=== PATIENT | female | born 1980 | race African-American/Black ===

== ENCOUNTER 2016-04-13 10:59 | Emergency (ER) | payer OTHER ==
[~2016-04-13] VITALS: Ht 170.2 cm; Wt 131.5 kg
[~2016-04-13 10:59] MED LIST: FLEXERIL10 MG PO; MOTRIN800 MG PO; ZOFRAN 8MG8 MG PO
--- NOTE | 2016-04-13 11:47 | ED INFLUENZA/URI COMPLAINT ---
History of Present Illness General Chief Complaint: Upper Respiratory Sx/Fever Stated Complaint: "I DON'T FEEL WELL" BODY ACHES Source: patient Exam Limitations: no limitations Vital Signs & Intake/Output Vital Signs & Intake/Output Vital Signs Date Time Temp Pulse Resp B/P Pulse O2 O2 Flow FiO2 Ox Delivery Rate 04/13 1211 97.8 100 20 123/74 96 Room Air 04/13 1200 97.0 100 22 94 Room Air 04/13 1151 Room Air 04/13 1126 97.5 94 20 128/84 98 Room Air Room Air Allergies Coded Allergies: morphine (Intermediate, SWELLING, RASH 04/13/16) Reconcile Medications Ibuprofen 800 MG TABLET 1 TAB PO TID PAIN Oseltamivir Phosphate (Tamiflu) 75 MG CAPSULE 1 CAP PO BID INFLUENZA Triage Note: PT TO ED WITH C/O NASAL CONGESTION AND BODY ACHES SINCE YESTERDAY, "I HAD THE FLU SHOT". Triage Nurses Notes Reviewed? yes Onset: Abrupt Duration: day(s): (2) Timing: multiple episodes today Severity: severe No Modifying Factors: none Associated Symptoms: CONGESTION, MYALGIAS, WEAKNESS : No Patient currently breastfeeds: No HPI: This is a 35 old male presents via chief complaint of sudden onset of weakness, body aches, runny nose and congestion for the past 2 days. She has not been taking any ibuprofen or Tylenol at home. She states that she's been lying in bed and sleeping most of the time. This morning she felt a little bit worse. No abdominal pain nausea or vomiting. No diarrhea or rash. She states she feels a little chest tightness. The patient denies any sore throat, productive cough. Denies any sick contacts at home but she does have school age children. She states she got her flu shot in December. Past History Travel History Traveled to [place] past 21 day No Medical History Any Pertinent Medical History? see below for history Neurological: NONE EENT: NONE Cardiovascular: NONE Respiratory: NONE Gastrointestinal: NONE Hepatic: NONE Renal: NONE Musculoskeletal: NONE Psychiatric: NONE Endocrine: NONE Blood Disorders: NONE Cancer(s): NONE [employer]/Reproductive: NONE Surgical History Surgical History: non-contributory Psychosocial History What is your primary language Urdu Tobacco Use: Current Daily Use Daily Tobacco Use Amount/Type: => 5 Cigarettes daily ETOH Use: occasional use Illicit Drug Use: denies illicit drug use Family History Hx Contributory? No Review of Systems Review of Systems Constitutional: Reports: chills, fever (SUBJECTIVE). EENTM: Reports: no symptoms. Respiratory: Denies: cough, short of breath, sputum production. Cardiovascular: Reports: chest pain. Denies: palpitations, syncope. GI: Denies: abdominal pain, diarrhea, nausea, vomiting. Genitourinary: Reports: no symptoms. Musculoskeletal: Reports: no symptoms. Skin: Denies: rash. Neurological/Psychological: Reports: no symptoms. Hematologic/Endocrine: Denies: bruising, bleeding, polyuria, polydipsia. Immunologic/Allergic: Denies: splenectomy. All Other Systems: Reviewed and Negative Physical Exam Physical Exam General Appearance: well developed/nourished, alert, awake, mild distress, obese Head: atraumatic, normal appearance, active bleeding Eyes: Bilateral: normal appearance, PERRL, EOMI. Ears, Nose, Throat: normal ENT inspection, moist mucous membrane, hearing grossly normal, Tympanic normal, pharynx normal, nasal congestion Neck: normal inspection, supple, full range of motion Respiratory: normal breath sounds, chest non-tender, no respiratory distress Cardiovascular: regular rate/rhythm Peripheral Pulses: 2+ radial (R), 2+ radial (L) Gastrointestinal: normal bowel sounds, soft, non-tender Neurologic/Psych: no motor/sensory deficits, awake, alert, oriented x 3 Skin: intact, normal color, warm/dry Core Measures Severe Sepsis Present: No Septic Shock Present: No Progress Differential Diagnosis: sinusitis, uri, INFLUENZA, BRONCHITIS, PERICARDITIS Plan of Care: Orders Procedure Date/time Status EKG 04/13 1155 Active RAPID VIRAL INFLUENZA A 04/13 1151 Complete Initial ED EKG: NSR Departure Departure Time of Disposition: 1240 Disposition: HOME OR SELF CARE Condition: Stable Clinical Impression Primary Impression: Influenza Referrals: GABBY KULKARNI APRN (PCP/Family) Additional Instructions: TAKE THE TAMIFLU AND IBUPROFEN DIRECTED. GET PLENTY OF REST AND DRINK PLENTY OF FLUIDS. FOLLOW UP WITH YOUR DOCTOR NEEDED. RETURN TO THE ER NEEDED. Departure Forms: Customer Survey General Discharge Information Prescriptions: Current Visit Scripts Ibuprofen 1 TAB PO TID #30 TAB Oseltamivir Phosphate (Tamiflu) 1 CAP PO BID #10 CAP
[2016-04-13 12:11] VITALS: BP 123/74
[2016-04-13] MEDS ORDERED: IBUPROFEN800 M1 PO (12:41)
[2016-04-13] MEDS ORDERED: TAMIFLU75 M1 PO (12:41)
== END 2016-04-13 12:46 ==
LOC: ERH 10:59
DX: J11.1 Influenza due to unidentified influenza virus with other respiratory manifestations (principal)
CPT/HCPCS: 87804; 87804-59; 93005; 93010; J1885

== ENCOUNTER 2016-06-22 22:14 | Emergency (ER) | payer OTHER ==
[~2016-06-22] VITALS: Ht 170.2 cm; Wt 138.8 kg
[~2016-06-22 22:14] MED LIST changes: +IBUPROFEN800 M1 PO; +TAMIFLU75 M1 PO
--- NOTE | 2016-06-22 22:59 | ED GI/GU/ABDOMINAL COMPLAINT ---
History of Present Illness General Chief Complaint: Abdominal Pain/Flank Pain Stated Complaint: ABD PAIN, VAGINAL BLEEDING, +PREG TEST 1 MONTH AGO Source: patient Exam Limitations: no limitations Vital Signs & Intake/Output Vital Signs & Intake/Output Vital Signs Date Time Temp Pulse Resp B/P Pulse O2 O2 Flow FiO2 Ox Delivery Rate 06/23 0307 65 18 133/76 98 Room Air 06/23 0103 96.5 66 20 113/65 97 Room Air 06/22 2234 97.2 66 18 137/95 99 Room Air ED Intake and Output 06/23 0000 06/22 1200 Intake Total Output Total Balance Patient 306 lb Weight Allergies Coded Allergies: morphine (Intermediate, SWELLING, RASH 04/13/16) Reconcile Medications Ibuprofen 800 MG TABLET 1 TAB PO TID PAIN Oseltamivir Phosphate (Tamiflu) 75 MG CAPSULE 1 CAP PO BID INFLUENZA Triage Note: PT TO TRIAGE WITH C/O LOWER ABD PAIN 10/10 AND VAGINAL BLEEDING SINCE 6PM. + TEST A MONTH AGO. PT DID'S SEE HER OBGYN YET. . VSS. Triage Nurses Notes Reviewed? yes ? n Is pt currently ? No Onset: Abrupt Duration: hour(s):, constant, continues in ED Timing: recent history Location: lower abd Radiation: no radiation Prior Abdominal Problems: none No Modifying Factors: none HPI: 35-year-old female comes into emergency room for further evaluation of lower abdominal pain has been going on for the past few hours. Pain is sharp. Cramping. Continuous. Pain is nonradiating. Denies any fever chills. Denies any vomiting. Patient reports that she had a positive test 1 month ago. Patient has not seen her [employer] doctor and has not had any ultrasound at this time. Nothing seems to make the symptoms better or worse. (NORA FINE) Past History Travel History Traveled to [place] past 21 day No Medical History Any Pertinent Medical History? 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 No (NORA FINE) Review of Systems Review of Systems Constitutional: Reports: no symptoms. EENTM: Reports: no symptoms. Respiratory: Reports: no symptoms. Cardiovascular: Reports: no symptoms. GI: Reports: see HPI. Genitourinary: Reports: no symptoms. Musculoskeletal: Reports: no symptoms. Skin: Reports: no symptoms. Neurological/Psychological: Reports: no symptoms. Hematologic/Endocrine: Reports: see HPI. Immunologic/Allergic: Reports: no symptoms. All Other Systems: Reviewed and Negative (NORA FINE) Physical Exam Physical Exam General Appearance: well developed/nourished, alert, mild distress, obese Head: atraumatic, normal appearance Eyes: Bilateral: normal appearance. Ears, Nose, Throat, Mouth: hearing grossly normal, moist mucous membrane Neck: normal inspection, full range of motion Respiratory: normal breath sounds, no respiratory distress Cardiovascular: regular rate/rhythm Gastrointestinal: soft, tenderness Back: normal inspection Extremities: normal range of motion Neurologic/Psych: awake, alert, oriented x 3, normal gait, normal mood/affect Skin: intact, normal color Core Measures ACS in differential dx? No Severe Sepsis Present: No Septic Shock Present: No (NORA FINE) Progress Differential Diagnosis: diverticulitis, ectopic , endometritis, esophageal varices, ovarian cyst, ovarian torsion, PID/cervicitis, SBO, UTI/ pyelo Plan of Care: Orders Procedure Date/time Status Add-on Test (ER Only) 06/23 0233 Active CULTURE,URINE 06/22 2308 Active URINE 06/22 2299 Complete URINALYSIS 06/23 2255 Complete HUMAN BETA HCG TITRE 06/23 2251 Complete COMPREHENSIVE METABOLIC PANEL 06/23 2251 Complete CBC WITHOUT DIFFERENTIAL 06/23 2251 Complete RHOGAM WORK-UP 06/23 2251 Complete Laboratory Tests 06/22/162308: Urine Test NEGATIVE 06/22/162308: Urinalysis MOD H, Urine Color YEL, Urine Clarity CLEAR, Urine pH 6.0, Ur Specific [place] 1.025, Urine Protein NEG, Urine Ketones NEG, Urine Nitrite NEG, Urine Bilirubin NEG, Urine Urobilinogen 1.0, Ur Leukocyte Esterase TRACE H, Ur Microscopic SEDIMENT EXAMINED, Urine RBC 15-25 H, Urine WBC 10-15 H, Ur Epithelial Cells MOD H, Urine Bacteria MOD H, Urine Mucus FEW, Urine Hemoglobin LARGE H, Urine Glucose NEG 06/22/16 2300: Anion Gap 9, Estimated GFR > 60, BUN/Creatinine Ratio 12.9, Glucose 93, Calcium 9.4, Total Bilirubin 0.4, AST 18, ALT 31, Alkaline Phosphatase 92, Total Protein 6.9, Albumin 3.9, Globulin 3.0, Albumin/Globulin Ratio 1.3, Beta HCG, Quant < 2.4, CBC w Diff NO MAN DIFF REQ, RBC 4.37, MCV 88.1, MCH 29.6, RDW 13.0, MPV 7.0 L, Gran % 65.4, Lymphocytes % 27.0, Monocytes % 5.4, Eosinophils % 1.8, Basophils % 0.4, Absolute Granulocytes 8.3 H, Absolute Lymphocytes 3.4, Absolute Monocytes 0.7 H, Absolute Eosinophils 0.2, Absolute Basophils 0.1, PUBS MCHC 33.6 Microbiology 06/22 2308 URINE ROUT: Urine Culture - RECD Diagnostic Imaging: Viewed by Me: CT Scan. Discussed w/RAD: CT Scan. Initial ED EKG: none Hand-Off Endorsed To: DIPTI SILVA DO Endorsed Time: 57 Pending: CT (NORA FINE) Departure Departure Disposition: STILL A PATIENT Condition: Stable Clinical Impression Primary Impression: Abdominal pain Referrals: GABBY KULKARNI APRN (PCP/Family) Departure Forms: Customer Survey General Discharge Information (NORA FINE) Departure Comments The patient was signed out to me by Nora Silveira. CT scan of the abdomen and pelvis shown below: PATIENT: POLA BACON PRESENT AGE: 35 PATIENT ACCOUNT NO: [id number] : 81 LOCATION: [facility] ORDERING PHYSICIAN: NORA AVILA SERVICE DATE: 06/23/16 EXAM TYPE: CAT - CT ABD & PELVIS W/O IV CONTRAS EXAMINATION: CT ABDOMEN AND PELVIS WITHOUT CONTRAST CLINICAL INFORMATION: Lower abdominal pain. Elevated white count. COMPARISON: CT scan abdomen pelvis 09/05/2013 TECHNIQUE: Multidetector volumetric imaging was performed from the superior aspect of the liver through the pubic symphysis. Sagittal and coronal reformatted images were obtained on the technologist's workstation. DLP: 1472.85mGy-cm FINDINGS: LUNG BASES: The visualized lung bases are unremarkable. LIVER, GALLBLADDER, AND BILIARY TREE: The liver is normal in size, shape, and attenuation. No focal hepatic lesion or biliary ductal dilatation is present. Right lobe liver measures 20 cm superior inferior. Small calcified gallstones in the gallbladder. No edema around the gallbladder. No bile duct dilatation. PANCREAS: Unremarkable. SPLEEN: 4 cm splenic cyst at the anterior splenic margin. Small calcified granuloma within the spleen. ADRENAL GLANDS: Unremarkable. KIDNEYS AND URETERS: The kidneys are normal in size, shape, and attenuation. No hydronephrosis, hydroureter, or calculi seen. No perinephric stranding. BLADDER: Unremarkable. GASTROINTESTINAL TRACT: The small and large bowel are unremarkable. The appendix is unremarkable. ABDOMINAL WALL: Small fat-containing umbilical hernia. LYMPH NODES: Normal. VASCULAR: Unremarkable. PELVIC VISCERA: Uterus is anteverted. No adnexal abnormality. OSSEOUS STRUCTURES: Vacuum disc phenomenon L5-S1 with endplate spur of the vertebrae. No spondylolysis or spondylolisthesis. IMPRESSION: No acute abnormality CT scan abdomen and pelvis. DICTATED BY: EAMON FREY MD DATE/TIME DICTATED:06/23/16214 ANIMAL DAYCARE PROVIDER:KALIE DATE/TIME TRANSCRIBED:06/23/16214 CONFIDENTIAL, DO NOT COPY WITHOUT APPROPRIATE AUTHORIZATION. <Electronically signed in Other Vendor System> SIGNED BY: EAMON FREY MD 06/23/16 0223 The patient's abdominal pain significantly improved. She does have hematuria and pyuria. Urine culture was sent, she denies any urinary symptoms. She will follow-up with her doctor on Friday. (DIPTI SILVA DO
[2016-06-22 23:08] LABS: ABSOLUTE BASOPHIL COUNT 0.1 /CUMM (0.0-0.2); ABSOLUTE EOSINOPHIL COUNT 0.2 /CUMM (0.0-0.7); ABSOLUTE GRANULOCYTE CT 8.3 /CUMM (1.4-6.5); ABSOLUTE LYMPH COUNT 3.4 /CUMM (1.2-3.4); ABSOLUTE MONOCYTE COUNT 0.7 /CUMM (0.10-0.60); BASOPHIL % 0.4 % (0.0-2.0); EOSINOPHIL % 1.8 % (0-5); GRANULOCYTE % 65.4 % (42.2-75.2); HEMATOCRIT 38.5 % (37-47); MEAN CORPUSCULAR HGB 29.6 PG (27.0-31.0); MEAN CORPUSCULAR HGB CONC 33.6 G/DL (33.0-37.0); MEAN CORPUSCULAR VOLUME 88.1 FL (81.0-99.0); PLATELET COUNT 338 /CUMM (130-400); RED BLOOD CELL CT 4.37 /CUMM (4.20-5.40); WHITE BLOOD CELL COUNT 12.8 /CUMM (4.8-10.8)
--- NOTE | 2016-06-23 02:23 | CT SCAN REPORT ---
EXAMINATION: CT ABDOMEN AND PELVIS WITHOUT CONTRAST CLINICAL INFORMATION: Lower abdominal pain. Elevated white count. COMPARISON: CT scan abdomen pelvis 09/05/2013 TECHNIQUE: Multidetector volumetric imaging was performed from the superior aspect of the liver through the pubic symphysis. Sagittal and coronal reformatted images were obtained on the technologist's workstation. DLP: 1472.85mGy-cm FINDINGS: LUNG BASES: The visualized lung bases are unremarkable. LIVER, GALLBLADDER, AND BILIARY TREE: The liver is normal in size, shape, and attenuation. No focal hepatic lesion or biliary ductal dilatation is present. Right lobe liver measures 20 cm superior inferior. Small calcified gallstones in the gallbladder. No edema around the gallbladder. No bile duct dilatation. PANCREAS: Unremarkable. SPLEEN: 4 cm splenic cyst at the anterior splenic margin. Small calcified granuloma within the spleen. ADRENAL GLANDS: Unremarkable. KIDNEYS AND URETERS: The kidneys are normal in size, shape, and attenuation. No hydronephrosis, hydroureter, or calculi seen. No perinephric stranding. BLADDER: Unremarkable. GASTROINTESTINAL TRACT: The small and large bowel are unremarkable. The appendix is unremarkable. ABDOMINAL WALL: Small fat-containing umbilical hernia. LYMPH NODES: Normal. VASCULAR: Unremarkable. PELVIC VISCERA: Uterus is anteverted. No adnexal abnormality. OSSEOUS STRUCTURES: Vacuum disc phenomenon L5-S1 with endplate spur of the vertebrae. No spondylolysis or spondylolisthesis. IMPRESSION: No acute abnormality CT scan abdomen and pelvis.
[2016-06-23 03:07] VITALS: BP 133/76
== END 2016-06-23 03:10 ==
LOC: ERH 22:14
PROVIDERS: Physician Assistant Medical
DX: O26.91 Pregnancy related conditions, unspecified, first trimester (principal); R10.9 Unspecified abdominal pain
CPT/HCPCS: 74176; 81001; 81025; 87086; 96374; J1885

== ENCOUNTER → 2017-04-15 | Day surgery (SDC) | payer OTHER ==
[~2017-04-15] VITALS: Ht 170.2 cm; Wt 104.3 kg
--- NOTE | 2017-04-15 19:24 | Operative Report ---
Operative/Inv Procedure Report Surgery Date: 04/15/17 Name of Procedure: Laparoscopic cholecystectomy Pre-Operative Diagnosis: Symptomatic gallstones Post-Operative Diagnosis: Same Estimated Blood Loss: scant Surgeon/Duplicator Punch Operator: Nereida NAGY,Kong AVILA Anesthesia: general endotracheal tube Operative/Procedure Note Note: Patient was positioned supine. After successful induction of general anesthesia, the patient's abdomen was clipped, prepped and draped in the usual sterile fashion. Local anesthetic was injected at the top of the umbilicus and then a curved horizontal incision little over a centimeter was made there with a 15 blade and then deepened to the midline fascia which was incised vertically a little over a centimeter. Both sides were secured with 0 Vicryl stay sutures and then the thin peritoneal layer was entered, 10 mm Byrd trocar inserted obliquely to the right, and the gas was turned on to 15 mm. After insufflation and repositioning to reverse Trendelenburg, 3 more dissecting 5 mm trochars were placed in the right subcostal area, first lateral, then mid-subcostal, then subxiphoid. The gallbladder fundus was grasped from the lateral port and retracted up over the edge of the liver and then we dissected out the area of the triangle of Calot while retracting the infundibulum caudally / laterally. First the cystic duct was identified, isolated at the neck, clipped 3 times, divided after the second clip and then in similar fashion the cystic artery was identified medially, dissected and divided. Then the gallbladder was from the liver bed using cautery then lowered into an Endobag and removed through the umbilical incision. The instruments and then the trochars were removed letting the gas escape. The fascial incision was closed with a figure 8 Vicryl then all 4 skin incisions were closed with interrupted subcuticular 4-0 Monocryl, followed by Mastisol Steri-Strips and Bandaids. Estimated blood loss was minimal, lap and sponge counts were correct, wound expectancy was clean- contaminated, IV fluids crystalloid, complications none, patient tolerated the procedure well and was returned to the recovery room in satisfactory condition.
== END ==
LOC: STS 03:45
DX: K80.10 Calculus of gallbladder with chronic cholecystitis without obstruction (principal); F17.200 Nicotine dependence, unspecified, uncomplicated
CPT/HCPCS: 81025; J0690; J1100; J2250; J2405